=== PATIENT | male | born 1985 | race Caucasian/White ===

== ENCOUNTER 2022-09-03 02:00 | Outpatient (CLI) | payer BC, SELFPAY ==
[2022-09-03 08:57] LABS: BUN 13 mg/dL (7-18); Calcium 9.5 mg/dL (8.5-10.1); Calculated LDL 115 mg/dL (<100); Chloride 98 mmol/L (98-107); Cholesterol 200 mg/dL (<200); Estimated GFR 101.28 (mL/min/1.73m2); Glucose 94 mg/dL (74-106); HDL Cholesterol 64 mg/dL (40-60); Potassium 3.6 mmol/L (3.5-5.1); Sodium 137 mmol/L (136-145); Triglyceride 106 mg/dL (<150)
[2022-09-04 09:28] LABS: HIV-1/2 Ag & Ab Screen Negative (Negative)
[2022-09-06 10:04] LABS: Hepatitis B Surface Ab Negative (See Note)
[2022-09-06 10:49] LABS: Hep B Core Antibody Negative (Negative)
[2022-09-06 10:59] LABS: Hepatitis C Ab w Rflx HCV PCR Negative (Negative)
[2022-09-06 14:07] LABS: Hepatitis B Surface Ag Negative (Negative)
[2022-09-08 20:42] LABS: Testosterone, Total 254 ng/dL (240-950)
== END 2022-09-03 02:01 | disposition home or self-care (01) ==
LOC: LBO 02:00
PROVIDERS: PCP Nurse Practitioner Family; Referring Provider Nurse Practitioner Family; Visit Provider Nurse Practitioner Family
DX: Z13.220 Encounter for screening for lipoid disorders (principal); R79.89 Other specified abnormal findings of blood chemistry; Z78.9 Other specified health status; Z13.1 Encounter for screening for diabetes mellitus; Z11.4 Encounter for screening for human immunodeficiency virus [HIV]; Z11.59 Encounter for screening for other viral diseases; R68.82 Decreased libido
CPT/HCPCS: 36415; 80048; 80061; 84403; 86704; 86706; 86803; 87340; 87389

== ENCOUNTER 2022-09-10 10:16 | Outpatient (CLI) | payer BC, SELFPAY ==
--- NOTE | 2022-09-10 10:15 | RT.EKG_ITS ---
APPROVED REPORT Exam: Resting ECG Reason for Exam: Yearly screening for stimulant medication Patient Location: O HR:76 bpm ECG Measurements Heart Rate 76 AXIS IN 142 P 39 QRSd 92 QRS 38 QT 393 T 4 QTc 442 Conclusion Sinus rhythm...normal P axis, V-rate 50- 99 Normal Electrocardiogram
== END 2022-09-10 10:17 | disposition home or self-care (01) ==
LOC: DI.KIM 10:18
PROVIDERS: PCP Nurse Practitioner Family; Visit Provider Nurse Practitioner Family
DX: Z79.899 Other long term (current) drug therapy (principal)
CPT/HCPCS: 93010

== ENCOUNTER 2022-09-10 13:51 | Outpatient (REF) | payer BC, SELFPAY ==
[2022-09-14 13:53] LABS: 2-OH-Ethyl-Flurazepam Negative ng/mL (Cutoff: 10); 7-NH-Clonazepam 78 ng/mL (Cutoff: 10); 7-NH-Flunitrazepam Negative ng/mL (Cutoff: 10); Alpha OH-Alprazolam Negative ng/mL (Cutoff: 10); Alpha-OH Midazolam Negative ng/mL (Cutoff: 10); Alpha-OH-Triazolam Negative ng/mL (Cutoff: 10); Alprazolam Negative ng/mL (Cutoff: 10); Benzodiazepines Interpretation Positive.; Chlordiazepoxide Negative ng/mL (Cutoff: 10); Clobazam Negative ng/mL (Cutoff: 10); Clonazepam Negative ng/mL (Cutoff: 10); Diazepam Negative ng/mL (Cutoff: 10); Flurazepam Negative ng/mL (Cutoff: 10); Lorazepam Negative ng/mL (Cutoff: 10); Midazolam Negative ng/mL (Cutoff: 10); N-Desmethylclobazam Negative ng/mL (Cutoff: 10); Prazepam Negative ng/mL (Cutoff: 10); Temazepam Negative ng/mL (Cutoff: 10); Triazolam Negative ng/mL (Cutoff: 10); Zolpidem Carboxylic acid Negative ng/mL (Cutoff: 10)
== END 2022-09-10 13:52 | disposition home or self-care (01) ==
LOC: LBN 13:51
PROVIDERS: PCP Nurse Practitioner Family; Visit Provider Nurse Practitioner Family
DX: Z51.81 Encounter for therapeutic drug level monitoring (principal)
CPT/HCPCS: 80346

== ENCOUNTER 2023-03-14 13:19 | Emergency (ER) | payer BC, SELFPAY ==
[2023-03-14] VITALS (17 sets, daily range): BP systolic 129–143; BP diastolic 80–96; PULSE 77–91; RESP 17–26; O2SAT 97–100
--- NOTE | 2023-03-14 13:15 | RT.EKG_ITS ---
APPROVED REPORT Exam: Resting ECG Reason for Exam: chest pain Patient Location: E HR:82 bpm ECG Measurements Heart Rate 82 AXIS WA 140 P 52 QRSd 98 QRS 40 QT 374 T 11 QTc 438 Conclusion Sinus rhythm...normal P axis, V-rate 60- 99 ST elev, probable normal early repol pattern...ST elevation, age<55
--- NOTE | 2023-03-14 13:37 | ED.GENADUL_ITS ---
Discharge Plan Disposition Patient Disposition: Home Condition: Stable Discharge Details Clinical Impression: Atypical chest pain Primary Care Provider: Maye Barreto ED Provider: Janett Casillas Home Meds and New Rx's Prescriptions: No Action dextroamphetamine-amphetamine [Adderall XR] 10 mg capsule,extended release 24hr 10 - 20 mg PO QAM MDD 20 mg Qty: 48 0RF Rx Instructions: Treatment agreement is 48 pills per 28 days dextroamphetamine-amphetamine [Adderall XR] 10 mg capsule,extended release 24hr 10 - 20 mg PO QAM MDD 20 mg Qty: 48 0RF Rx Instructions: Treatment agreement is 48 pills per 28 days dextroamphetamine-amphetamine [Adderall XR] 10 mg capsule,extended release 24hr 10 - 20 mg PO QAM MDD 20 Qty: 48 0RF Rx Instructions: Treatment agreement is 48 pills per 28 days Discharge Instructions Instructions: Chest Pain (ED) Additional Instructions: Your labs and imaging are reassuring here today. As we discussed, one of your inflammatory markers was slightly elevated but this could be associated with muscular strain. Please encourage hydration. please continue with the anti- inflammatory such as Aleve as well as Tylenol for the next few days until the discomfort and swelling has come down. Please follow-up with primary care next week for reevaluation. If you develop increased pain, spreading of the pain, rash, shortness of breath or other new/worsening symptoms to seek care urgently once again. Referrals: Maye Barreto, P[employer]AGE [employer]OR [Primary Care Provider] - Discharge Data Discharge Date/Time-TO BE ENTERED AT DEPARTURE: 03/14/23 16:25 Medical Decision Making Patient is a pleasant 37-year-old male presenting with chief complaint of right- sided chest pain that began yesterday. Patient reports the pain is worse with deep inspiration and certain movements, particularly when laying flat. He does report however that bending forward significantly also increases discomfort. He has not had pain like this historically. Denies any fevers or chills. Denies feeling short of breath. No recent illness or illness in the last few months. He does travel for work although it sounds like more frequent trips rather than prolonged periods of travel. He does report that he does wear harness and was in harness for longer period of time recently. No past family history of DVT that he is aware of although he does report that his family has heart problems but is not able to elaborate. States that he did find anti-inflammatories beneficial. His significant other is battling a viral illness currently but he has not yet got this. On exam, patient appears nontoxic. Lung sounds are clear, normal cardiac exam. He has near his nipple with no rash. Reproducible pain on the right side of the chest rash, erythema or appreciable swelling. Patient does note some subjective swelling. 2+ distal pulses. ECG reviewed by Dr. Rich, no actue ischemic findings. Considered PE given his risk factors, endocarditis given the movement driven aspects of this. Initially, is primarily only thinking musculoskeletal but I am not able to elicit this with engagement of his pectoral muscles and feel that further evaluation would be appropriate. Will obtain D-dimer, troponin and ESR/CRP. Labs reviewed, signficant for ESR minimally elevated at 0.45, otherwise no abnormality. Given length of symptoms, no repeat troponin warranged at this time. MEDIASTINUM: Normal.? HEART: Normal. PULMONARY VASCULATURE: Normal. LUNGS: Clear. ? PLEURAL SPACE: No pleural effusion or pneumothorax. BONE:Within normal limits for the patient's age.? There is a right convex curvature of the thoracic spine. OTHER FINDINGS:Normal.? IMPRESSION: No acute pulmonary findings. Discussed with patient. He is very physically active at work. Advised that htis is likely associated with overuse or the straps he wears across his chest. Encoruaged NSAIDS, APAP, hydration, avoidance of increased pressure over the area. Return precautions discussed. Advised f/u with PCP. All of his questions and concerns were addressed, he is in agreement with this plan. HPI General Date/Time Provider Initiated Documentation: 03/14/23 13:22 . Limitations to Documentation: no limitations . Information obtained by: patient and RN notes reviewed . History of Present Illness 37 year old M presents to the emergency department with the chief complaint of right sided pleuritic chest pain and chest wall pain, described as moderate, with intensity rated at 6 (has woken him at night). and is localized to the chest. Patient reports no radiation. Patient started experiencing this day(s) and it has been constant. Immobilization improves symptom(s), (shallow breaths) Movement worsens symptoms . Patient notes no other symptoms.. Patient did receive the following treatments prior to arrival, NSAID Related Data Home Medications Medication Instructions Recorded Confirmed dextroamphetamine-amphetamine ER 10 - 20 mg PO QAM #48 tab-caps 03/18/23 03/18/23 10 mg 24hr capsule,extend release (Adderall XR) dextroamphetamine-amphetamine ER 10 - 20 mg PO QAM #48 tab-caps 03/18/23 03/18/23 10 mg 24hr capsule,extend release (Adderall XR) dextroamphetamine-amphetamine ER 10 - 20 mg PO QAM #48 tab-caps 03/18/23 03/18/23 10 mg 24hr capsule,extend release (Adderall XR) Previous Rx's Medication Instructions Recorded dextroamphetamine-amphetamine ER 10 - 20 mg PO QAM #48 tab-caps 03/18/23 10 mg 24hr capsule,extend release (Adderall XR) dextroamphetamine-amphetamine ER 10 - 20 mg PO QAM #48 tab-caps 03/18/23 10 mg 24hr capsule,extend release (Adderall XR) dextroamphetamine-amphetamine ER 10 - 20 mg PO QAM #48 tab-caps 03/18/23 10 mg 24hr capsule,extend release (Adderall XR) Allergies Allergy/AdvReac Type Severity Reaction Status Date / Time Penicillins Allergy Severe Other (See Verified 03/18/23 10:13 Comment) trazodone AdvReac Other (See Verified 03/18/23 10:13 Comment) General Stated Complaint: Chest Pain SURJIT: 3 Review of Systems Constitutional Constitutional: Reports as per HPI, Denies chills, Denies fever(s), Denies headache(s), Denies lethargy and Denies poor appetite Eyes Eyes: Denies change in vision ENT Ears, Nose, Mouth, and Throat: Denies dizziness and Denies headache(s) Cardiovascular Cardiovascular: Reports as per HPI and Denies dyspnea Respiratory Respiratory: Reports as per HPI, Denies chest congestion, Denies cough and Denies dyspnea Gastrointestinal Gastrointestinal: Reports as per HPI, Denies abdominal pain, Denies diarrhea, Denies nausea and Denies vomiting Genitourinary Genitourinary: Denies system reviewed and no additional complaints, except as documented (denies change in urinary habits) Musculoskeletal Musculoskeletal: Reports as per HPI and Denies back pain Integumentary/Breasts Skin/Breast: Reports as per HPI and Denies rash Neurologic Neurologic: Reports as per HPI, Denies dizziness and Denies headache(s) PFSH All Active Problems (Updated 03/18/23 @ 13:04 by Maye Barreto NP) Costochondritis (Acute) Lump of right breast (Acute) Hyperlipidemia, unspecified (Chronic) Low libido (Acute) Overweight (Chronic) Anxiety (Chronic) ADHD (Acute) Medical History (Updated 03/18/23 @ 13:04 by Maye Barreto NP) Depression Hypertension Patient reports has never been treated with BP medication, just has h/o elevated BP readings Insomnia Left wrist fracture Childhood; casting only Right foot pain Surgical History History of tonsillectomy Family History Mother Depression Anxiety ADD (attention deficit disorder) Thyroid disease Maternal Grandfather Hypertension H/O heart bypass surgery Father Adopted Maternal Grandfather Cancer Brain Social History Smoking/Tobacco Use Status: Never Smoking risk assessment performed?: Yes Alcohol Intake: current Alcohol Intake frequency: holidays/special occasions only Drug use: Never Substance use type: does not use Adopted: No Caregiver/Support person: No Foster care: No Household members: significant other, children and other Details: 08/2022: Girlfriend and 2 stepchildren (4 & 7) Housing: house Number of Children: 2 Communication Needs: None Education Level: college Details: Bachelors Do you need help understanding health information?: Never 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 Pets and animals: Yes Pets and animals: dog(s) Sexually active: Yes Do you think of yourself as: straight/heterosexual Current gender identity: male What is your relationship status?: living with partner How often do you talk on the phone with friends or family?: twice per week How often do you get together with friends or relatives?: once per week Do you belong to any clubs or organized social groups?: no Panel score (0-1 are the most socially isolated patients): 2 What type of physical activity do you participate in: other Details: My job can be physically demanding - that's about it Duration: 45-60 minutes/day Frequency: 3-4 times per week Gemini/Congregational: None Special gemini needs: No Seatbelt use: always Helmet use: Yes 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 highway: No Do you feel safe at home: Yes Do you feel safe in your relationship?: Yes Exam Const General: cooperative, healthy appearing, comfortable, no acute distress and well developed Nutritional Appearance: average body habitus and well nourished Orientation: alert, awake and oriented x3 HENMT Head: normal to inspection Ears: hearing grossly normal bilaterally Mouth: moist mucous membranes Chest Chest: normal inspection of the chest, normal palpation of entire chest wall, no crepitus and localized rib tenderness with anteroposterior compression (right upper chest wall) Resp Effort & Inspection: normal respiratory effort, able to speak in complete sentences and no respiratory distress Auscultation: clear to auscultation bilaterally, no rales, no rhonchi and no wheezes Cardio Rate: regular rate Rhythm: regular rhythm Heart Sounds: S1 normal and S2 normal GI Inspection: normal to inspection, no edema and non-distended Palpation: soft, no hepatosplenomegaly, not firm, no guarding, not rigid and nontender Auscultation: normal bowel sounds Back/Spine/Pelvis Back: no CVA tenderness Thoracic/Lumbar Spine: thoracic and lumbar spine normal to inspection Skin General skin exam: no rashes or lesions noted Trauma: no lacerations or abrasions Neuro General: patient alert, patient awake and patient oriented x3 Cognition: normal cognition Speech: speech normal Gait: normal gait Extrem General: normal to inspection, capillary refill normal, no pedal edema, no calf tenderness and normal gait Psych Appearance: grossly normal and well kempt Mental Status: mental status grossly normal Speech and Movement: speech and movement normal Course Vital Signs Vital signs: Vital Signs Pulse 80 03/14/23 13:27 Respiratory Rate 18 03/14/23 13:27 Blood Pressure 143/80 H 03/14/23 13:27 Pulse Oximetry 100 03/14/23 13:27 Pulse 80 03/14/23 13:27 Respiratory Rate 18 03/14/23 13:27 Respiratory Effort Normal, Non-Labored 03/14/23 13:32 Blood Pressure 143/80 H 03/14/23 13:27 Blood Pressure Position Sitting 03/14/23 13:27 Pulse Oximetry 100 03/14/23 13:27 Oxygen Delivery Method Room Air 03/14/23 13:27 Oxygen Flow Rate 0 03/14/23 13:27 Pain Level 6 03/14/23 13:27
--- NOTE | 2023-03-14 13:45 | DI.RAD_ITS ---
Exam(s) XR CHEST 2V PA LATERAL EXAM: XR CHEST 2V PA LATERAL CLINICAL HISTORY: right sided CP TECHNIQUE: 2D digital imaging was performed of the chest. Two images were obtained. PA and lateral views were obtained. COMPARISON: No exams were available for comparison FINDINGS: MEDIASTINUM: Normal. HEART: Normal. PULMONARY VASCULATURE: Normal. LUNGS: Clear. PLEURAL SPACE: No pleural effusion or pneumothorax. BONE:Within normal limits for the patient's age. There is a right convex curvature of the thoracic s pine. OTHER FINDINGS:Normal. IMPRESSION: No acute pulmonary findings. DATA REPOSITORY: RADIATION DOSE DELIVERED:
[2023-03-14 14:52] LABS: Abs Immature Grans 0.03 10^3/uL (0.0-0.06); Absolute Basophil Count 0.07 10^3/uL (0.0-0.2); Absolute Eosinophil Count 0.21 10^3/uL (0.0-0.7); Absolute Lymphocyte Count 2.39 10^3/uL (1.2-3.4); Absolute Monocyte Count 1.15 10^3/uL (0.1-0.8); Absolute Neutrophil Count 6.92 10^3/uL (1.2-6.7); Basophils % 0.6; Eosinophils % 1.9; HCT 41.4 % (40.0-50.0); HGB 14.1 g/dL (13.5-17.5); Immature Grans % 0.3; Lymphocytes % 22.2; MCH 30.1 pg (27.0-33.0); MCHC 34.1 % (32.0-36.0); MCV 89 fL (80-95); MPV 10.3 fL (8.0-11.0); Monocytes % 10.7; Neutrophils % 64.3; Platelet Count 284 10^3/uL (130-400); RBC 4.68 10^6/uL (4.36-5.78); RDW 12.7 % (11.8-14.1); RDW-SD 41.4 fL; WBC 10.77 10^3/uL (4.4-10.8)
[2023-03-14 14:54] LABS: ESR 5 mm/hr (0-15)
[2023-03-14 15:13] LABS: ALT 51 U/L (16-63); AST 26 U/L (15-37); Albumin 4.2 g/dL (3.4-5.0); Alkaline Phosphatase 85 U/L (46-116); Anion Gap 4.7 mmol/L (3-11); BUN 14 mg/dL (7-18); Bilirubin, Total 0.4 mg/dL (0.2-1.0); C-Reactive Protein 0.45 mg/dL (0.0-0.3); CO2 33.3 mmol/L (21.0-32.0); CREATININE 0.9 mg/dL (0.70-1.30); Calcium 9.4 mg/dL (8.5-10.1); Chloride 104 mmol/L (98-107); Estimated GFR 114.22 (mL/min/1.73m2); Glucose 83 mg/dL (74-106); Potassium 4.2 mmol/L (3.5-5.1); Sodium 142 mmol/L (136-145); Total Protein 7.6 g/dL (6.4-8.2); Troponin I < 50 ng/L (<or=60)
[2023-03-14 15:34] LABS: D-Dimer 147 ng/mlFEU (<500)
== END 2023-03-14 16:25 | disposition home or self-care (01) ==
PROVIDERS: Emergency Provider Physician Assistant; PCP Nurse Practitioner Family
DX: R07.89 Other chest pain (principal)
CPT/HCPCS: 80053; 85652; 93005; 99284; 71046; 83735; 84484; 85025; 85379; 86140; 93010; 99283

== ENCOUNTER → 2023-10-20 02:50 | Outpatient (CLI) | payer BC, SELFPAY ==
--- NOTE | 2023-10-20 08:15 | DI.US_ITS ---
Exam(s) US BREAST RT LIMITED MG MAMMO DIAGNOSTIC BI EXAM: MG MAMMO DIAGNOSTIC BI CLINICAL HISTORY: lump under R nipple,[id number]. COMPARISON: US US BREAST RT LIMITED from 10/20/2023 TECHNIQUE: Craniocaudal and mediolateral oblique Full Field Digital Mammography views of both breast s with Computer Aided Diagnosis followed by Tomosynthesis and right breast ultrasound. FINDINGS: Mammography/Tomosynthesis: Masses/Architectural Distortion: None seen. No evidence of gynecomastia. Microcalcifications: No suspicious pleomorphic-type are seen. Skin Thickening/Nipple Retraction: None. Right breast US: Echotexture: No evidence of gynecomastia. Shadowing: No suspicious foci. Cyst: None. Solid lesions: 8 x 4 x 5 millimeter hypoechoic nodule in the retroareolar region slightly lateral to the nipple. This corresponds to the palpable abnormality. No suspicious features. Ductal dilation: None. IMPRESSION: 1. No evidence of malignancy is noted. BI-RADS Category 3 - Probably Benign Finding: Recommend follow-up right breast ultrasound in 3 months Breast Density - Category A - Almost entirely fatty A negative radiographic report should not delay biopsy if a dominant or clinically suspicious mass is present. Up to ten percent of cancers are not identified on mammography. A negative report may reinforce clinical impression. Adenosis and dense breasts may obscure an underlying neoplasm. False positive reports average 6 to 10%. Patient will receive a letter notifying them of these results.
== END ==
PROVIDERS: PCP Nurse Practitioner Family; Visit Provider Nurse Practitioner Family
DX: N63.15 Unspecified lump in the right breast, overlapping quadrants (principal)
CPT/HCPCS: 76642; 77062; 77066; G0279